=== PATIENT | female | born 1965 | race Caucasian/White ===

== ENCOUNTER 2017-08-27 15:32 | Emergency (ER) | payer MEDICAID ==
[2017-08-27 15:50] VITALS: BP 118/66
--- NOTE | 2017-08-27 16:31 | XRAY Preliminary Report ---
Exam: XR ANKLE 3 VIEW RT IMPRESSION: Normal ankle radiography. [facility] SITE ID: [id number]
--- NOTE | 2017-08-27 16:34 | XRAY Preliminary Report ---
Exam: XR FOOT 3 VIEW RT IMPRESSION: Normal foot radiography. [facility] SITE ID: [id number]
--- NOTE | 2017-08-27 16:34 | XRAY Report ---
EXAM: RIGHT ANKLE RADIOGRAPHY EXAM DATE: 08/27/2017 04:24 PM. CLINICAL HISTORY: Pain since a twisting injury yesterday. COMPARISON: None. TECHNIQUE: 3 views. FINDINGS: Bones: Normal. No fractures or bone lesions. Joints: Normal. No effusion. No subluxations. The ankle mortise is normally aligned. Soft Tissues: Normal. No soft tissue swelling. IMPRESSION: Normal ankle radiography. [facility] Referring Provider Line: [phone] SITE ID: [id number]
--- NOTE | 2017-08-27 16:35 | XRAY Report ---
EXAM: RIGHT FOOT RADIOGRAPHY EXAM DATE: 08/27/2017 04:24 PM. CLINICAL HISTORY: Pain since a twisting injury yesterday. COMPARISON: None. TECHNIQUE: 3 views. FINDINGS: Bones: Normal. No fractures or bone lesions. Joints: Normal. No subluxations. Soft Tissues: Normal. No soft tissue swelling. IMPRESSION: Normal foot radiography. [facility] Referring Provider Line: [phone] SITE ID: [id number]
[2017-08-27] MEDS ORDERED: ACETAMINOPHEN 325 MG TABLET PO STA (16:51)
--- NOTE | 2017-08-27 16:56 | ED Physician Documentation ---
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: Endometriosis, Ovarian cysts - Past Surgical History Past Surgical History: Yes HEENT: Tonsil/Adenoidectomy - Present Medications Home Medications: Ambulatory Orders Medication Instructions Recorded Confirmed Hydrocortisone 2.5 mg PO DAILY 03/29/14 08/27/17 Levothyroxine Sodium [Levoxyl] 0.025 mcg PO DAILY 03/29/14 08/27/17 Liothyronine Sodium 15 mcg PO BID 03/29/14 08/27/17 oxyCODONE [Roxicodone] 5 mg PO Q6H PRN #10 tablet 03/29/14 08/27/17 - Allergies Allergies/Adverse Reactions: Allergies Allergy/AdvReac Type Severity Reaction Status Date / Time thimerosal Allergy Emesis Verified 08/27/17 16:00 [From Merthiolate (thimerosal)] - Social History Does the pt smoke?: No Smoking Status: Never smoker Does the pt drink ETOH?: No Does the pt have substance abuse?: No - Immunizations Immunizations are current?: Yes - POLST Patient has POLST: No PD ED PE NORMAL - Vitals Vital signs reviewed: Yes - Extremities Extremities: Other (edema laterally, mld TTP diatl fib and lat mll, more sig TTP base 5th MT, no sig mid foot pain, no laxity, MSV intact, no knee TTP) Results - Vitals Vitals: Vital Signs - 24 hr 08/27/17 15:41 Temperature 36.5 C Heart Rate 75 Respiratory 16 Rate Blood Pressure 118/66 O2 Saturation 99 Oxygen O2 Source Room air - Rads (name of study) ankle Radiology: See rad report foot Radiology: See rad report (neg) Departure - Departure Disposition: 01 Home, Self Care Clinical Impression: Foot sprain Qualifiers: Encounter type: initial encounter Laterality: right Qualified Code(s): S93.601A - Unspecified sprain of right foot, initial encounter Condition: Good Instructions: ED Sprain Foot Comments: The xrays do not show any fractures or dislocations. May bear weight as tolerated - wearing a cam walker or ankle brace or hiking type boot may help support the foot and ankle and ease the pain Ice elevation and tylenol as needed for pain. If still very painful in 2 weeks please see your PMD for repeat imaging- occasionally a hairline crack can be impossible to see on initial imaging
== END 2017-08-27 17:04 | disposition home or self-care (01) ==
LOC: ED 15:32
DX: S93.601A Unspecified sprain of right foot, initial encounter (principal); X50.0XXA Overexertion from strenuous movement or load, initial encounter; E03.9 Hypothyroidism, unspecified
CPT/HCPCS: 99283

== ENCOUNTER 2018-03-29 23:42 | Emergency (ER) | payer MEDICAID ==
[2018-03-30 00:27] LABS: MUDS CUTOFF CONCENTRATIONS CUTOFF CONC BELOW:
[2018-03-30 00:43] LABS: AMPHETAMINE SCREEN,URINE NEGATIVE (NEGATIVE); BENZODIAZEPINES SCREEN, URINE POSITIVE (NEGATIVE); COCAINE SCREEN URINE NEGATIVE (NEGATIVE); METHADONE SCREEN, URINE NEGATIVE (NEGATIVE); METHAMPHETAMINES SCREEN, URINE NEGATIVE (NEGATIVE); OPIATE SCREEN, URINE NEGATIVE (NEGATIVE); OXYCODONE SCREEN, URINE NEGATIVE (NEGATIVE); PROPOXYPHENE SCREEN, URINE NEGATIVE (NEGATIVE); TRICYCLIC ANTIDEPRESSANT,URINE NEGATIVE (NEGATIVE)
--- NOTE | 2018-03-30 02:45 | ED Physician Documentation ---
PD HPI MHE - Stated complaint Stated Complaint: ANXIETY - Chief complaint Chief Complaint: MHE - History obtained from History obtained from: Patient - History of Present Illness Primary symptom: Depression, Anxiety Timing - onset: Today Contributing factors: Family Similar symptoms before: Work up / diagnostics Recently seen: Not recently seen - Additional information Additional information: Patient is a 52 year old female with a history of anxiety and depression who is presenting to the emergency department for feeling overwhelmed. Patient moved to the area to take care of her father with the help with her brother. Patient' s brother a few months ago and patient has been taking care of her father. divine she had a discussion with him about his will and he essentially stated that it was being split between herself and her nephew and this upset the patient. Patient also reports that she does not get along with her father but there is nobody else there to take care of him. Patient states that she feels stuck and does not have any friends in the area and has no good outlets. Review of Systems Ten Systems: 10 systems reviewed and negative Psychiatric: reports: Depressed, Anxiety. 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, Ovarian cysts - Past Surgical History Past Surgical History: Yes HEENT: Tonsil/Adenoidectomy - Present Medications Home Medications: Ambulatory Orders Medication Instructions Recorded Confirmed Hydrocortisone 2.5 mg PO DAILY 03/29/14 08/27/17 Levothyroxine Sodium [Levoxyl] 0.025 mcg PO DAILY 03/29/14 08/27/17 Liothyronine Sodium 15 mcg PO BID 03/29/14 08/27/17 oxyCODONE [Roxicodone] 5 mg PO Q6H PRN #10 tablet 03/29/14 08/27/17 Alprazolam [Xanax] 0.5 mg PO TID #14 tablet 03/30/18 - Allergies Allergies/Adverse Reactions: Allergies Allergy/AdvReac Type Severity Reaction Status Date / Time thimerosal Allergy Emesis Verified 03/29/18 23:57 [From Merthiolate (thimerosal)] - Social History Does the pt smoke?: No Smoking Status: Never smoker Does the pt drink ETOH?: No Does the pt have substance abuse?: No - Immunizations Immunizations are current?: Yes - POLST Patient has POLST: No PD ED PE NORMAL - Vitals Vital signs reviewed: Yes - General General: Alert and oriented X 3, Well developed/nourished - HEENT HEENT: Atraumatic, PERRL - Cardiac Cardiac: RRR - Respiratory Respiratory: No respiratory distress - Abdomen Abdomen: Non distended - Derm Derm: Normal color, Warm and dry - Extremities Extremities: No deformity - Neuro Neuro: Alert and oriented X 3, No motor deficit, Normal speech Eye Opening: Spontaneous Motor: Obeys Commands Verbal: Oriented GCS Score: 15 PD ED PE EXPANDED - Psych Psych: Depressed, Tearful, Anxious. No: Suicidal, Homicidal Results - Vitals Vitals: Vital Signs - 24 hr 03/29/18 23:45 Temperature 36.3 C L Heart Rate 72 Respiratory 18 Rate Blood Pressure 114/99 H O2 Saturation 99 Oxygen O2 Source Room air - Labs Labs: Laboratory Tests 03/30/18 00:26 Urine Opiates Screen NEGATIVE Ur Oxycodone Screen NEGATIVE Urine Methadone Screen NEGATIVE Ur Propoxyphene Screen NEGATIVE Ur Barbiturates Screen NEGATIVE Ur Tricyclics Screen NEGATIVE Ur Phencyclidine Scrn NEGATIVE Ur Amphetamine Screen NEGATIVE U Methamphetamines Scrn NEGATIVE U Benzodiazepines Scrn POSITIVE H Urine Cocaine Screen NEGATIVE U Cannabinoids Screen NEGATIVE PD MEDICAL DECISION MAKING - ED course Complexity details: reviewed old records, reviewed results, re-evaluated patient , considered differential, d/w patient ED course: Patient was seen and examined at bedside. patient was awake alert and oriented. A lengthy discussion was had with the patient about her situation. Patient was not currently suicidal just overwhelmed and needed to talk to someone. Patient stated that after talking about what was going on she felt better about the situation. [facility] was contacted and a follow up appointment was made for the patient for saturday. patient required no further inpatient work up and was stable for discharge with outpatient follow up. - Sepsis Event Vital Signs: Vital Signs - 24 hr 03/29/18 23:45 Temperature 36.3 C L Heart Rate 72 Respiratory 18 Rate Blood Pressure 114/99 H O2 Saturation 99 Oxygen O2 Source Room air Departure - Departure Disposition: Home, Self Care Clinical Impression: Anxiety, Depression Condition: Good Instructions: ED Stress React Follow-Up: [facility] [Other] - Within 3 Days Prescriptions: Alprazolam [Xanax] 0.5 mg PO TID #14 tablet Comments: It is important that you go to your appointment on Saturday at 1pm. Before then if you have any thoughts of hurting yourself you should call the crisis line at or return to the emergency department. You should also consider exercise as it can have positive effects both physically and mentally.
[2018-03-30] MEDS ORDERED: ALPRAZolam 0.25 MG TABLET PO STA (02:52)
[2018-03-30 03:00] VITALS: BP 103/90
== END 2018-03-30 02:59 | disposition home or self-care (01) ==
LOC: ED 23:42
DX: F41.9 Anxiety disorder, unspecified (principal); F32.9 Major depressive disorder, single episode, unspecified
CPT/HCPCS: 80306; 99283; A9270; 80048; 80320; 85025

== ENCOUNTER → 2020-08-23 | Outpatient (CLI) | payer MEDICAID, OTHER ==
--- NOTE | 2020-08-23 15:59 | XRAY Report ---
PROCEDURE: Foot 3 View LT INDICATIONS: CONTUSION OF LEFT FOOT TECHNIQUE: 3 views of the foot were acquired. COMPARISON: None FINDINGS: Bones: No fractures or dislocations. No suspicious bony lesions. Soft tissues: No tibiotalar joint effusion. Achilles tendon appears normal. IMPRESSION: No trauma found. Reviewed by: Britton Stearns MD on 08/23/2020 3:57 PM [facility] Approved by: Britton Stearns MD on 08/23/2020 3:57 PM [facility] Station ID: [id number]
== END ==
LOC: DI.S 08:00
PROVIDERS: ATTEND Emergency Medicine
DX: S90.32XA Contusion of left foot, initial encounter (principal)